=== PATIENT | male | born 1965 | race Caucasian/White ===

== ENCOUNTER 2019-08-08 16:08 | Emergency (ER) | payer OTHER ==
[~2019-08-08] VITALS: Ht 190.5 cm; Wt 126.6 kg
[2019-08-08 16:31] VITALS: BP 178/96; Ht 190.5 cm; Wt 126.6 kg
== END 2019-08-08 16:45 | disposition home or self-care (01) ==
LOC: ED 16:08
DX: I10 Essential (primary) hypertension (principal)